=== PATIENT | male | born 1955 | race Caucasian/White ===

== ENCOUNTER 2016-12-07 15:07 | Inpatient (IN) | payer MEDICAID ==
[~2016-12-07] VITALS: Ht 182.9 cm; Wt 95.3 kg
[~2016-12-07 15:07] MED LIST: ALPR1TAB2 PO; CYCL10TA50 PO; HYDR-3240 PO; TRAZ100T15 PO; [UNRECOGNIZED DRUG - OTHER]
[2016-12-07] MEDS ORDERED: THIAMINE 100 MG in SODIUM CHLORIDE 0.9% 50 ML IVPB ONE (15:30)
[2016-12-07] MEDS ORDERED: LORazepam 2 MG/ML, 1ML ONE ×2 (15:30→16:40)
[2016-12-07] MEDS ORDERED: SODIUM CHLORIDE FLUSH 10ML SYR IVF ONE (15:30)
[2016-12-07] MEDS: LORazepam 2 MG/ML, 1ML IVPush PRN ×2 (15:34→16:42)
[2016-12-07 15:57] LABS: HEMATOCRIT 44.3 % (39.2-51.8); HEMOGLOBIN 15.3 g/dL (13.7-18.0); WHITE BLOOD COUNT 10.9 x10^3/uL (3.4-10)
[2016-12-07 16:10] LABS: ASPARTATE AMINO TRANSFERASE 20 U/L (15-37); BLOOD UREA NITROGEN 9 mg/dL (7-18)
[2016-12-07] MEDS ORDERED: SODIUM CHLORIDE 0.9% 1,000 ML IV ONE (16:52)
[2016-12-07] MEDS ORDERED: LORazepam 2 MG/ML, 1ML IVPush PRN (17:00)
[2016-12-07] MEDS ORDERED: SODIUM CHLORIDE FLUSH 10ML SYR IVF PRN (17:00)
[2016-12-07] MEDS ORDERED: DOCUSATE 100 MG CAPSULE PO PRN (19:00)
[2016-12-07] MEDS ORDERED: NICOTINE 21 MG/24 HR PATCH.TD24 TD ONE (19:00)
[2016-12-07] MEDS ORDERED: NS + 20MEQ KCL 1,000 ML IV SCH (19:00)
[2016-12-07] MEDS ORDERED: DIPHENHYDRAMINE 50 MG CAPSULE PO PRN (19:00)
[2016-12-07] MEDS ORDERED: ALUMINUM/MAG/SIMETHICONE 30 ML UDC PO PRN (19:00)
[2016-12-07 19:17] LABS: HEMATOCRIT 46.1 % (39.2-51.8); HEMOGLOBIN 15.8 g/dL (13.7-18.0); WHITE BLOOD COUNT 8.9 x10^3/uL (3.4-10)
[2016-12-07 20:59] VITALS: BP 114/78
[2016-12-07] MEDS: BACLOFEN 10 MG TABLET PO SCH (21:03)
[2016-12-07] MEDS: MAGNESIUM CHLORIDE 64 MG TABLET.DR PO SCH (21:03)
[2016-12-07] MEDS: ENOXAPARIN 40 MG/0.4 ML SQ SCH (21:04)
[2016-12-07] MEDS: LORazepam 1MG TABLET PO PRN (21:08)
[2016-12-08 00:34] VITALS: BP 155/79
[2016-12-08 06:52] LABS: ASPARTATE AMINO TRANSFERASE 19 U/L (15-37); BLOOD UREA NITROGEN 8 mg/dL (7-18)
[2016-12-08 07:22] VITALS: BP 159/94
[2016-12-08] MEDS: BACLOFEN 10 MG TABLET PO SCH ×2 (08:23→22:20)
[2016-12-08] MEDS: FOLIC ACID 1 MG TABLET PO SCH (08:23)
[2016-12-08] MEDS: MAGNESIUM CHLORIDE 64 MG TABLET.DR PO SCH ×3 (08:23→17:00)
[2016-12-08] MEDS: MULTIVITAMINS/MINERALS TABLET PO SCH (08:23)
[2016-12-08] MEDS: LORazepam 1MG TABLET PO PRN ×3 (10:29→22:20)
[2016-12-08] MEDS ORDERED: LORazepam 2 MG/ML, 1ML IVPush PRN (10:30)
[2016-12-08 13:51] VITALS: BP 157/86
[2016-12-08] MEDS ORDERED: ACETAMINOPHEN 325 MG TABLET PO PRN (16:30)
[2016-12-08 18:37] VITALS: BP 135/92
[2016-12-08] MEDS: ENOXAPARIN 40 MG/0.4 ML SQ SCH (22:21)
[2016-12-09 03:20] VITALS: BP 145/90
[2016-12-09] MEDS: LORazepam 1MG TABLET PO PRN ×2 (04:31→10:50)
[2016-12-09 05:52] LABS: BLOOD UREA NITROGEN 10 mg/dL (7-18)
[2016-12-09 07:27] VITALS: BP 152/83
[2016-12-09] MEDS: MAGNESIUM CHLORIDE 64 MG TABLET.DR PO SCH ×2 (07:33→12:17)
[2016-12-09] MEDS: FOLIC ACID 1 MG TABLET PO SCH (07:33)
[2016-12-09] MEDS: BACLOFEN 10 MG TABLET PO SCH (07:34)
[2016-12-09] MEDS: MULTIVITAMINS/MINERALS TABLET PO SCH (07:34)
[2016-12-09 13:30] VITALS: BP 141/78
[2016-12-09] MEDS ORDERED: ENOXAPARIN 40 MG/0.4 ML SQ SCH (21:00)
== END 2016-12-09 14:30 | disposition left against medical advice (07) | DRG 894 ==
LOC: ED 16:51 → EDIP 16:52 → ED 17:00 → 3NE 18:17
PROVIDERS: ADMIT Internal Medicine; ATTEND Internal Medicine
DX: F10.239 Alcohol dependence with withdrawal, unspecified (principal); J69.0 Pneumonitis due to inhalation of food and vomit; R56.9 Unspecified convulsions; F33.9 Major depressive disorder, recurrent, unspecified; F10.229 Alcohol dependence with intoxication, unspecified; E87.6 Hypokalemia; F17.210 Nicotine dependence, cigarettes, uncomplicated; F19.94 Other psychoactive substance use, unspecified with psychoactive substance-induced mood disorder; F41.1 Generalized anxiety disorder; I10 Essential (primary) hypertension; K21.9 Gastro-esophageal reflux disease without esophagitis; N40.0 Benign prostatic hyperplasia without lower urinary tract symptoms; Y90.7 Blood alcohol level of 200-239 mg/100 ml; Z91.5 Personal history of self-harm; Z90.49 Acquired absence of other specified parts of digestive tract; Z53.21 Procedure and treatment not carried out due to patient leaving prior to being seen by health care provider
CPT/HCPCS: 36415; 71010; 80048; 80053; 80307; 81003; 82140; 83690; 83735; 85025; 93005; 96365; 96375; 96376; J1650; J3411; J3480; G0479; J2060; J7030

== ENCOUNTER 2017-05-06 14:23 | Emergency (ER) | payer MEDICAID ==
[~2017-05-06] VITALS: Ht 172.7 cm; Wt 81.8 kg
[2017-05-06] MEDS ORDERED: THIAMINE 100MG TABLET ONE (14:54)
[2017-05-06] MEDS ORDERED: LORazepam 2 MG/ML, 1ML ONE (14:55)
[2017-05-06] MEDS ORDERED: LORazepam 2 MG/ML, 1ML IVPush ONE (15:00)
[2017-05-06] MEDS ORDERED: THIAMINE 100MG TABLET PO ONE (16:00)
[2017-05-06] MEDS ORDERED: SODIUM CHLORIDE 0.9% 1,000ML IVBOLUS ONE (16:00)
[2017-05-06] MEDS ORDERED: SODIUM CHLORIDE FLUSH 10ML SYR IVF ONE (16:00)
[2017-05-06 16:16] LABS: BASOPHILS # (AUTO) 0.05 x10^3/uL (0-0.1); BASOPHILS % (AUTO) 1 % (0-1); EOSINOPHILS # (AUTO) 0.08 x10^3/uL (0-0.4); EOSINOPHILS % (AUTO) 1 % (1-7); LYMPHOCYTES # (AUTO) 2.09 x10^3/uL (1-3.4); LYMPHOCYTES % (AUTO) 22 % (22-44); MD NO; MEAN CORPUSCULAR HEMOGLOBIN 31.1 pg (27.5-34.5); MEAN CORPUSCULAR HGB CONC 34.6 g/dL (33.2-36.2); MEAN CORPUSCULAR VOLUME 89.9 fL (81-97); MEAN PLATELET VOLUME 6.8 fL (7.4-10.4); MONOCYTES # (AUTO) 1.02 x10^3/uL (0.2-0.8); MONOCYTES % (AUTO) 11 % (2-9); NEUTROPHILS # (AUTO) 6.25 x10^3/uL (1.8-6.8); NEUTROPHILS % (AUTO) 66 % (42-75); PLATELET COUNT 213 x10^3/uL (130-400); RED BLOOD COUNT 4.85 x10^6/uL (4.38-5.82); RED CELL DISTRIBUTION WIDTH 13.1 % (9.4-14.8)
[2017-05-06 16:23] LABS: ALBUMIN 3.1 g/dL (3.4-5.0); ANION GAP 10 mmol/L (5-15); CALCIUM 7.7 mg/dL (8.5-10.1); CHLORIDE 96 mmol/L (98-107); CREATININE 0.72 mg/dL (0.7-1.3)
[2017-05-06 17:43] VITALS: BP 125/70
== END 2017-05-06 18:04 | disposition home or self-care (01) ==
LOC: ED 17:57
DX: M51.36 Other intervertebral disc degeneration, lumbar region (principal); F10.20 Alcohol dependence, uncomplicated; E87.1 Hypo-osmolality and hyponatremia; K21.9 Gastro-esophageal reflux disease without esophagitis; I10 Essential (primary) hypertension
CPT/HCPCS: 36415; 70450; 72110; 80047; 80048; 82040; 85025; 96361; 96374; 99285; J2060; J7030

== ENCOUNTER 2018-12-20 13:46 | Emergency (ER) | payer MEDICAID, OTHER ==
[~2018-12-20] VITALS: Ht 185.4 cm; Wt 86.0 kg
[~2018-12-20 13:46] MED LIST changes: +TRAZ-137 PO; -TRAZ100T15 PO
--- NOTE | 2018-12-20 14:03 | NUR ---
Patient brought in by EMS for altered mental status. Patient arrives moaning "don't be mad at me" and "I don't feel good" but does not answer questions. With physician in room patient reports abdominal pain and alcohol use. Patient does not tolerate oral temperatue, axillary temperature obtained, MD aware. Blood glucose per EMS blood glucose 156mg/dL. IV started by EMS prior to arrival. Continuous blood pressure, SPO2 and cardiac monitoring in place, call bach within reach.
--- NOTE | 2018-12-20 14:12 | NUR ---
Patient has abrasions and bruising to extremities, erythema around right eye.
--- NOTE | 2018-12-20 14:47 | NUR ---
Patient repeatedly attempting to get out of bed, removing monitoring equipment. Sitter requested for patient's safety.
[2018-12-20 14:53] LABS: ALANINE AMINOTRANSFERASE 48 U/L (12-78); ALBUMIN 3.7 g/dL (3.4-5.0); ANION GAP 13 mmol/L (5-15); CALCIUM 8.3 mg/dL (8.5-10.1); CHLORIDE 97 mmol/L (98-107); CREATININE 0.76 mg/dL (0.7-1.3)
[2018-12-20 14:55] LABS: BASOPHILS # (AUTO) 0.03 x10^3/uL (0-0.1); BASOPHILS % (AUTO) 1 % (0-1); EOSINOPHILS # (AUTO) 0.04 x10^3/uL (0-0.4); EOSINOPHILS % (AUTO) 1 % (1-7); LYMPHOCYTES # (AUTO) 2.51 x10^3/uL (1-3.4); LYMPHOCYTES % (AUTO) 36 % (22-44); MD NO; MEAN CORPUSCULAR HEMOGLOBIN 31.2 pg (27.5-34.5); MEAN CORPUSCULAR HGB CONC 34.3 g/dL (33.2-36.2); MEAN CORPUSCULAR VOLUME 90.8 fL (81-97); MEAN PLATELET VOLUME 6.4 fL (7.4-10.4); MONOCYTES # (AUTO) 0.71 x10^3/uL (0.2-0.8); MONOCYTES % (AUTO) 10 % (2-9); NEUTROPHILS # (AUTO) 3.63 x10^3/uL (1.8-6.8); NEUTROPHILS % (AUTO) 52 % (42-75); PLATELET COUNT 235 x10^3/uL (130-400); RED BLOOD COUNT 5.31 x10^6/uL (4.38-5.82); RED CELL DISTRIBUTION WIDTH 13.6 % (9.4-14.8)
[2018-12-20 14:58] LABS: ALKALINE PHOSPHATASE 84 U/L (45-117); BILIRUBIN,TOTAL 0.8 mg/dL (0.2-1.0); TOTAL PROTEIN 7.3 g/dL (6.4-8.2)
--- NOTE | 2018-12-20 15:10 | NUR ---
Sitter at bedside for patient safety
--- NOTE | 2018-12-20 16:40 | NUR ---
Dinner tray provided, sitter remains at bedside for patient's safety.
[2018-12-20 16:44] VITALS: BP 119/75
--- NOTE | 2018-12-20 16:45 | NUR ---
Patient ate 50% of meal tray provided.
--- NOTE | 2018-12-20 17:27 | NUR ---
Patient now answering questions appropriately, reporting left knee pain, Dr. Kaiser, notified.
--- NOTE | 2018-12-20 17:30 | NUR ---
Patient ambulates with steady gait, waiting for xray for left knee.
--- NOTE | 2018-12-20 17:54 | NUR ---
Patient not in room, IV with catheter intact found on the floor with gown. Patient appears to have eloped. Dr. Kaiser notified.
== END 2018-12-20 18:11 | disposition left against medical advice (07) ==
LOC: ED 18:05
DX: F10.220 Alcohol dependence with intoxication, uncomplicated (principal); R10.9 Unspecified abdominal pain; I10 Essential (primary) hypertension; F41.1 Generalized anxiety disorder; K21.9 Gastro-esophageal reflux disease without esophagitis; F32.9 Major depressive disorder, single episode, unspecified; F17.200 Nicotine dependence, unspecified, uncomplicated
CPT/HCPCS: 36415; 80053; 80307; 85025; 93005; 99284

== ENCOUNTER 2020-02-17 19:11 | Inpatient (IN) | payer MEDICAID ==
[~2020-02-17] VITALS: Ht 182.9 cm; Wt 76.2 kg
[~2020-02-17 19:11] MED LIST changes: -TRAZ-137 PO; +TRAZ-175 PO
[2020-02-17] MEDS ORDERED: LORazepam 2 MG/ML, 1ML IVPush ONE ×2 (20:00→21:30)
[2020-02-17] MEDS ORDERED: LORazepam 2 MG/ML, 1ML ONE ×2 (20:24→21:13)
[2020-02-17 20:53] LABS: AMPHETAMINE SCREEN, URINE Negative (Negative); BARBITURATE SCREEN, URINE Negative (Negative); BENZODIAZEPINE SCREEN, URINE Negative (Negative); CANNABINOID SCREEN, URINE Positive (Negative); COCAINE SCREEN, URINE Negative (Negative); METHADONE SCREEN, URINE Negative (Negative); OPIATE SCREEN, URINE Positive (Negative)
[2020-02-17 20:57] LABS: BASOPHILS % (AUTO) 0 % (0-1); EOSINOPHILS % (AUTO) 0 % (1-7); LYMPHOCYTES % (AUTO) 9 % (22-44); MEAN CORPUSCULAR HEMOGLOBIN 30.6 pg (27.5-34.5); MEAN CORPUSCULAR HGB CONC 35.6 g/dL (33.2-36.2); MEAN PLATELET VOLUME 6.5 fL (7.4-10.4); MONOCYTES % (AUTO) 6 % (2-9); NEUTROPHILS % (AUTO) 84 % (42-75); PLATELET COUNT 169 x10^3/uL (130-400); RED BLOOD COUNT 4.34 x10^6/uL (4.38-5.82); RED CELL DISTRIBUTION WIDTH 13.5 % (9.4-14.8)
[2020-02-17 21:02] LABS: MD NO
[2020-02-17 21:05] LABS: ALANINE AMINOTRANSFERASE 28 U/L (12-78); ALBUMIN 3.5 g/dL (3.4-5.0); ANION GAP 9 mmol/L (5-15); CALCIUM 7.8 mg/dL (8.5-10.1); CHLORIDE 85 mmol/L (98-107); CREATININE 0.64 mg/dL (0.7-1.3)
[2020-02-17 21:09] LABS: ALKALINE PHOSPHATASE 91 U/L (45-117); BILIRUBIN,TOTAL 1.8 mg/dL (0.2-1.0); TOTAL PROTEIN 6.3 g/dL (6.4-8.2); TROPONIN I 0.015 ng/mL (0.000-0.045)
[2020-02-17 21:13] LABS: SALICYLATE LEVEL < 1.7 mg/dL (2.8-20.0)
--- NOTE | 2020-02-17 21:14 | NUR ---
CODE YELLOW. PT HELPED BY STAFF MEMBERS BACK TO BED.
--- NOTE | 2020-02-17 21:16 | NUR ---
REPORT FROM RICHARD MORALES
--- NOTE | 2020-02-17 21:20 | NUR ---
dr andrade in to assess pt after fall.
[2020-02-17] MEDS ORDERED: SODIUM CHLORIDE 0.9% 1,000ML IVBOLUS ONE (21:30)
--- NOTE | 2020-02-17 21:49 | NUR ---
pt placed on bed alarm. red socks applied and yellow gown applied to pt. Addendum: 02/17/20 at 2236 by BDICECCO no bed alaram available to me in the ER. no cord to attached to darryl alarm to attached to outlet. no sitter available to me in the ER to sit on this pt. I will do frequent checks on pt while i provide care to other patients. no other option.
--- NOTE | 2020-02-17 21:50 | NUR ---
pt provided a urinal for uriantion. pt then began to drink urine for urinal. urinal removed from pt anisa.
[2020-02-17] MEDS ORDERED: ACETAMINOPHEN 325 MG TABLET PO PRN (22:30)
[2020-02-17] MEDS ORDERED: SODIUM CHLORIDE 0.9% 1,000 ML IV SCH (22:30)
[2020-02-17] MEDS ORDERED: THIAMINE 200 MG in SODIUM CHLORIDE 0.9% 50 ML IV ONE (22:30)
[2020-02-17] MEDS ORDERED: PROMETHAZINE 25 MG/ML, 1ML IM PRN (22:30)
[2020-02-17] MEDS ORDERED: LABETALOL 5MG/ML, 20ML IVPush PRN (22:30)
[2020-02-17] MEDS ORDERED: LORazepam 2 MG/ML, 1ML IV PRN ×3 (22:30)
[2020-02-17] MEDS ORDERED: FOLIC ACID 1 MG TABLET PO ONE (22:30)
--- NOTE | 2020-02-17 22:32 | NUR ---
report attempted x 2
--- NOTE | 2020-02-17 23:13 | NUR ---
report to thom walter
--- NOTE | 2020-02-17 23:14 | NUR ---
PT SLEEPING ON GURNEY. RESPIRATIONS EVEN AND UNLABORED.
[2020-02-17 23:44] VITALS: BP 142/62
[2020-02-18] MEDS ORDERED: DIAZEPAM 5 MG TABLET ONE ×2 (00:06→06:35)
[2020-02-18] MEDS: ENOXAPARIN 40 MG/0.4 ML SQ SCH ×2 (00:12→20:25)
[2020-02-18] MEDS: LACTULOSE 10 GM/15 ML UDC PO SCH ×3 (00:13→20:24)
[2020-02-18] MEDS: DIAZEPAM 10 MG TABLET PO SCH ×3 (00:13→06:37)
[2020-02-18 01:26] LABS: ANION GAP 6 mmol/L (5-15); CALCIUM 7.9 mg/dL (8.5-10.1); CHLORIDE 96 mmol/L (98-107); CREATININE 0.59 mg/dL (0.7-1.3)
[2020-02-18] MEDS: LORazepam 2 MG/ML, 1ML IV PRN ×5 (02:34→23:47)
[2020-02-18 05:47] LABS: BASOPHILS % (AUTO) 0 % (0-1); EOSINOPHILS % (AUTO) 0 % (1-7); LYMPHOCYTES % (AUTO) 21 % (22-44); MEAN CORPUSCULAR HEMOGLOBIN 30.1 pg (27.5-34.5); MEAN CORPUSCULAR HGB CONC 34.5 g/dL (33.2-36.2); MEAN PLATELET VOLUME 6.6 fL (7.4-10.4); MONOCYTES % (AUTO) 12 % (2-9); NEUTROPHILS % (AUTO) 67 % (42-75); PLATELET COUNT 153 x10^3/uL (130-400); RED BLOOD COUNT 4.42 x10^6/uL (4.38-5.82); RED CELL DISTRIBUTION WIDTH 13.4 % (9.4-14.8)
[2020-02-18 05:55] LABS: ALBUMIN 3.1 g/dL (3.4-5.0); ANION GAP 4 mmol/L (5-15); CALCIUM 7.9 mg/dL (8.5-10.1); CHLORIDE 100 mmol/L (98-107)
[2020-02-18 06:00] LABS: ALANINE AMINOTRANSFERASE 27 U/L (12-78); ALKALINE PHOSPHATASE 80 U/L (45-117); BILIRUBIN,TOTAL 2.4 mg/dL (0.2-1.0); CREATININE 0.66 mg/dL (0.7-1.3); TOTAL PROTEIN 5.8 g/dL (6.4-8.2)
[2020-02-18 06:04] LABS: MD NO
[2020-02-18 08:00] VITALS: BP 127/71
[2020-02-18 08:36] LABS: MICROSCOPIC AUTO
[2020-02-18 08:37] LABS: CHLORIDE,URINE RANDOM 74 mmol/L; POTASSIUM,URINE RANDOM 48 mmol/L; SODIUM,URINE RANDOM 79 mmol/L
[2020-02-18] MEDS ORDERED: SODIUM CHLORIDE 0.9% 1,000 ML IV SCH (09:00)
[2020-02-18] MEDS ORDERED: POTASSIUM CHLORIDE 20 MEQ TAB.ER.PRT PO ONE (09:00)
[2020-02-18 09:14] LABS: ANION GAP 6 mmol/L (5-15); CALCIUM 8.1 mg/dL (8.5-10.1); CHLORIDE 102 mmol/L (98-107); CREATININE 0.77 mg/dL (0.7-1.3)
[2020-02-18] MEDS: MULTIVITAMINS/MINERALS TABLET PO SCH (09:27)
[2020-02-18] MEDS: THIAMINE 100 MG in SODIUM CHLORIDE 0.9% 50 ML IV SCH (11:21)
[2020-02-18 13:00] VITALS: BP 162/92
[2020-02-18 17:34] LABS: ANION GAP 7 mmol/L (5-15); CALCIUM 8.2 mg/dL (8.5-10.1); CHLORIDE 98 mmol/L (98-107); CREATININE 0.72 mg/dL (0.7-1.3)
[2020-02-18 19:07] VITALS: BP 158/70
[2020-02-18] MEDS ORDERED: DIAZEPAM 5 MG TABLET PO SCH (22:30)
[2020-02-19] MEDS: LACTULOSE 10 GM/15 ML UDC PO SCH ×2 (00:36→09:26)
[2020-02-19] MEDS: LORazepam 2 MG/ML, 1ML IV PRN ×4 (00:48→14:08)
[2020-02-19 00:58] VITALS: BP 150/97
[2020-02-19] MEDS: DIAZEPAM 5 MG TABLET PO SCH ×3 (01:58→13:26)
[2020-02-19 08:00] VITALS: BP 161/83
[2020-02-19] MEDS: MULTIVITAMINS/MINERALS TABLET PO SCH (09:25)
[2020-02-19] MEDS: THIAMINE 100 MG in SODIUM CHLORIDE 0.9% 50 ML IV SCH (09:26)
[2020-02-19 09:29] LABS: ANION GAP 10 mmol/L (5-15); CALCIUM 8.5 mg/dL (8.5-10.1); CHLORIDE 97 mmol/L (98-107)
[2020-02-19] MEDS: CARVEDILOL 3.125 MG TABLET PO SCH (09:29)
[2020-02-19] MEDS: SODIUM CHLORIDE 0.9% 1,000 ML IV SCH (13:26)
[2020-02-19] MEDS ORDERED: HALOPERIDOL 5 MG/ML ONE (14:42)
[2020-02-19] MEDS: HALOPERIDOL 5 MG/ML IM PRN (14:44)
[2020-02-19] MEDS: RISPERIDONE 0.5 MG TABLET PO SCH (19:00)
[2020-02-20] MEDS: DIAZEPAM 5 MG TABLET PO SCH ×5 (00:34→18:28)
[2020-02-20] MEDS: RISPERIDONE 0.5 MG TABLET PO SCH ×2 (00:36→20:23)
[2020-02-20] MEDS: CARVEDILOL 3.125 MG TABLET PO SCH (00:36)
[2020-02-20] MEDS: ENOXAPARIN 40 MG/0.4 ML SQ SCH ×2 (00:37→22:30)
[2020-02-20 00:58] VITALS: BP 153/84
[2020-02-20] MEDS: SODIUM CHLORIDE 0.9% 1,000 ML IV SCH ×3 (01:31→23:31)
[2020-02-20] MEDS: HALOPERIDOL 5 MG/ML IM PRN ×3 (01:39→20:32)
[2020-02-20] MEDS: ACETAMINOPHEN 325 MG TABLET PO PRN ×2 (01:58→12:42)
[2020-02-20] MEDS: NICOTINE 21 MG/24 HR PATCH.TD24 TD SCH ×3 (02:40→23:30)
[2020-02-20] MEDS: LORazepam 1MG TABLET PO PRN ×8 (04:17→17:55)
[2020-02-20 05:56] LABS: CHLORIDE 95 mmol/L (98-107)
[2020-02-20 06:00] LABS: ANION GAP 5 mmol/L (5-15); CALCIUM 8.3 mg/dL (8.5-10.1); CREATININE 0.83 mg/dL (0.7-1.3)
[2020-02-20] MEDS ORDERED: POTASSIUM CHLORIDE 20 MEQ TAB.ER.PRT PO ONE (06:30)
[2020-02-20 08:00] VITALS: BP 155/92
[2020-02-20] MEDS: MULTIVITAMINS/MINERALS TABLET PO SCH (08:50)
[2020-02-20] MEDS: LACTULOSE 10 GM/15 ML UDC PO SCH ×2 (08:50→20:23)
[2020-02-20] MEDS: THIAMINE 100 MG in SODIUM CHLORIDE 0.9% 50 ML IV SCH (08:51)
[2020-02-20] MEDS: LORazepam 2 MG/ML, 1ML IV PRN ×4 (08:57→23:39)
[2020-02-20] MEDS: HYDROcodone/APAP 5/325 TABLET PO PRN ×2 (11:35→19:43)
[2020-02-20 14:00] VITALS: BP 152/99
[2020-02-20] MEDS: CARVEDILOL 6.25 MG TABLET PO SCH (16:59)
[2020-02-20 18:42] VITALS: BP 156/74
[2020-02-21] MEDS: DIAZEPAM 5 MG TABLET PO SCH (00:03)
[2020-02-21] MEDS ORDERED: HALOPERIDOL 5 MG/ML IV ONE (00:30)
[2020-02-21] MEDS: LORazepam 1MG TABLET PO PRN (01:00)
[2020-02-21 01:45] VITALS: BP 162/76
[2020-02-21] MEDS ORDERED: PHENOBARBITAL SODIUM IVPB ONE (02:00)
[2020-02-21] MEDS ORDERED: SODIUM CHLORIDE 0.9% IVPB ONE (02:00)
[2020-02-21] MEDS ORDERED: PHARMACY INSTRUCTION MC PRN ×4 (02:00)
[2020-02-21 03:25] LABS: ANION GAP 6 mmol/L (5-15); CALCIUM 8.6 mg/dL (8.5-10.1); CHLORIDE 102 mmol/L (98-107)
[2020-02-21 03:28] LABS: CREATININE 0.62 mg/dL (0.7-1.3)
[2020-02-21 04:02] LABS: BASOPHILS % (AUTO) 0 % (0-1); EOSINOPHILS % (AUTO) 1 % (1-7); LYMPHOCYTES % (AUTO) 21 % (22-44); MEAN CORPUSCULAR HEMOGLOBIN 30.4 pg (27.5-34.5); MEAN PLATELET VOLUME 7.4 fL (7.4-10.4); MONOCYTES % (AUTO) 10 % (2-9); NEUTROPHILS % (AUTO) 67 % (42-75); PLATELET COUNT 196 x10^3/uL (130-400); RED BLOOD COUNT 4.73 x10^6/uL (4.38-5.82); RED CELL DISTRIBUTION WIDTH 13.8 % (9.4-14.8)
[2020-02-21 04:03] LABS: MD NO
[2020-02-21] MEDS: CARVEDILOL 6.25 MG TABLET PO SCH ×2 (05:36→18:00)
[2020-02-21] MEDS ORDERED: MAGNESIUM SULFATE PMX 2GM/50ML 50 ML IV ONE (06:30)
[2020-02-21] MEDS ORDERED: POTASSIUM CHLORIDE 40 MEQ in SODIUM CHLORIDE 0.9% 500 ML IV ONE (07:00)
[2020-02-21] MEDS ORDERED: SODIUM CHLORIDE 0.9% IV ONE (07:30)
[2020-02-21] MEDS ORDERED: PHENOBARBITAL SODIUM IV ONE (07:30)
[2020-02-21] MEDS: LACTULOSE 10 GM/15 ML UDC PO SCH ×2 (08:25→20:47)
[2020-02-21] MEDS: MULTIVITAMINS/MINERALS TABLET PO SCH ×2 (08:25→09:00)
[2020-02-21] MEDS ORDERED: SODIUM PHOSPHATE 40 MEQ in SODIUM CHLORIDE 0.9% 500 ML IV ONE (09:00)
[2020-02-21] MEDS: THIAMINE 100 MG in SODIUM CHLORIDE 0.9% 50 ML IV SCH (13:59)
[2020-02-21] MEDS: NICOTINE 21 MG/24 HR PATCH.TD24 TD SCH (18:20)
[2020-02-21] MEDS: SODIUM CHLORIDE 0.9% 1,000 ML IV SCH (18:21)
[2020-02-21] MEDS: PHENOBARBITAL SODIUM 65 MG/ML, 1ML IM SCH (20:47)
[2020-02-21] MEDS: ENOXAPARIN 40 MG/0.4 ML SQ SCH (22:42)
[2020-02-22 05:01] LABS: INTERNATIONAL NORMALIZED RATIO 1.02 (0.93-1.1); PROTHROMBIN TIME 10.8 Seconds (9.6-11.5)
[2020-02-22 05:07] LABS: ALANINE AMINOTRANSFERASE 43 U/L (12-78); ALBUMIN 3.3 g/dL (3.4-5.0); ANION GAP 7 mmol/L (5-15); CALCIUM 8.1 mg/dL (8.5-10.1); CHLORIDE 106 mmol/L (98-107)
[2020-02-22 05:09] LABS: ALKALINE PHOSPHATASE 74 U/L (45-117); BILIRUBIN,TOTAL 0.7 mg/dL (0.2-1.0); TOTAL PROTEIN 6.3 g/dL (6.4-8.2)
[2020-02-22] MEDS: CARVEDILOL 6.25 MG TABLET PO SCH ×2 (05:38→17:41)
[2020-02-22] MEDS ORDERED: POTASSIUM CHLORIDE 20 MEQ TAB.ER.PRT PO ONE (06:30)
[2020-02-22] MEDS: LACTULOSE 10 GM/15 ML UDC PO SCH ×2 (07:53→19:36)
[2020-02-22] MEDS: MULTIVITAMINS/MINERALS TABLET PO SCH (07:53)
[2020-02-22] MEDS: THIAMINE 100 MG in SODIUM CHLORIDE 0.9% 50 ML IV SCH (07:56)
[2020-02-22] MEDS: PHENOBARBITAL SODIUM 65 MG/ML, 1ML IM SCH (07:56)
[2020-02-22 09:00] VITALS: BP 148/90
[2020-02-22 10:20] VITALS: BP 144/86
[2020-02-22 10:39] VITALS: BP 128/74
[2020-02-22 13:10] VITALS: BP 123/7
[2020-02-22] MEDS: PHENOBARBITAL 20 MG/5 ML ORAL SOL PO SCH (16:17)
[2020-02-22] MEDS: HYDROcodone/APAP 5/325 TABLET PO PRN (17:41)
[2020-02-22] MEDS: NICOTINE 21 MG/24 HR PATCH.TD24 TD SCH (17:41)
[2020-02-22 19:31] VITALS: BP 136/80
[2020-02-22] MEDS: ACETAMINOPHEN 325 MG TABLET PO PRN (19:40)
[2020-02-22] MEDS: ENOXAPARIN 40 MG/0.4 ML SQ SCH (21:57)
[2020-02-23 01:08] VITALS: BP 128/78
[2020-02-23] MEDS: PHENOBARBITAL 20 MG/5 ML ORAL SOL PO SCH ×2 (04:41→14:59)
[2020-02-23] MEDS: CARVEDILOL 6.25 MG TABLET PO SCH ×2 (04:41→18:50)
[2020-02-23 07:37] VITALS: BP 137/84
[2020-02-23] MEDS: HYDROcodone/APAP 5/325 TABLET PO PRN ×2 (09:09→18:55)
[2020-02-23] MEDS: THIAMINE 100 MG in SODIUM CHLORIDE 0.9% 50 ML IV SCH (09:09)
[2020-02-23] MEDS: LACTULOSE 10 GM/15 ML UDC PO SCH ×2 (09:09→21:59)
[2020-02-23] MEDS: CITALOPRAM 20 MG TABLET PO SCH (09:09)
[2020-02-23] MEDS: MULTIVITAMINS/MINERALS TABLET PO SCH (09:10)
[2020-02-23 12:42] VITALS: BP 132/73
[2020-02-23] MEDS: ACETAMINOPHEN 325 MG TABLET PO PRN (12:51)
[2020-02-23] MEDS: NICOTINE 21 MG/24 HR PATCH.TD24 TD SCH (18:50)
[2020-02-23 19:35] VITALS: BP 146/82
[2020-02-23] MEDS: ENOXAPARIN 40 MG/0.4 ML SQ SCH (21:59)
[2020-02-23] MEDS ORDERED: TEMAZEPAM 15 MG CAPSULE PO ONE (22:00)
[2020-02-24] MEDS ORDERED: TEMAZEPAM 15 MG CAPSULE PO ONE (00:30)
[2020-02-24 01:37] VITALS: BP 158/88
[2020-02-24] MEDS: PHENOBARBITAL 20 MG/5 ML ORAL SOL PO SCH (03:08)
[2020-02-24 09:52] VITALS: BP 141/85
[2020-02-24] MEDS: MULTIVITAMINS/MINERALS TABLET PO SCH (09:55)
[2020-02-24] MEDS: CITALOPRAM 20 MG TABLET PO SCH (09:56)
[2020-02-24] MEDS: CARVEDILOL 6.25 MG TABLET PO SCH (09:56)
[2020-02-24] MEDS: HYDROcodone/APAP 5/325 TABLET PO PRN (09:56)
[2020-02-24] MEDS: LACTULOSE 10 GM/15 ML UDC PO SCH (09:57)
[2020-02-24] MEDS: THIAMINE 100 MG in SODIUM CHLORIDE 0.9% 50 ML IV SCH (11:51)
[2020-02-24] MEDS ORDERED: CARV6.2512 PO (13:20)
[2020-02-24] MEDS ORDERED: THIA100T67 PO (13:20)
[2020-02-24] MEDS ORDERED: MULT-484 PO (13:20)
[2020-02-24] MEDS ORDERED: CITA20TA9 PO (13:20)
[2020-02-25] MEDS ORDERED: PHENOBARBITAL 20 MG/5 ML ORAL SOL PO SCH (15:30)
[2020-02-26] MEDS ORDERED: PHENOBARBITAL 20 MG/5 ML ORAL SOL PO SCH (15:30)
== END 2020-02-24 15:00 | disposition home or self-care (01) | DRG 52 ==
LOC: ED 21:29 → EDIP 21:43 → 5SO 23:36 → CCU 02-21 02:11 → 5SO 02-22 09:59 → DCLOUNGE 02-24 14:56
PROVIDERS: ADMIT Family Medicine; ATTEND Internal Medicine Infectious Disease
DX: G93.41 Metabolic encephalopathy (principal); F15.90 Other stimulant use, unspecified, uncomplicated; D64.9 Anemia, unspecified; E87.1 Hypo-osmolality and hyponatremia; F10.239 Alcohol dependence with withdrawal, unspecified; F17.200 Nicotine dependence, unspecified, uncomplicated; F32.9 Major depressive disorder, single episode, unspecified; I10 Essential (primary) hypertension; K21.9 Gastro-esophageal reflux disease without esophagitis; N40.0 Benign prostatic hyperplasia without lower urinary tract symptoms; R29.6 Repeated falls; F19.10 Other psychoactive substance abuse, uncomplicated; S09.90XA Unspecified injury of head, initial encounter; S50.812A Abrasion of left forearm, initial encounter; W06.XXXA Fall from bed, initial encounter; Z90.49 Acquired absence of other specified parts of digestive tract; Y93.89 Activity, other specified; Y92.092 Bedroom in other non-institutional residence as the place of occurrence of the external cause; Y99.8 Other external cause status
CPT/HCPCS: 36415; 70450; 71045; 72125; 80048; 80053; 80299; 80307; 80320; 80329; 81001; 82140; 82330; 82436; 82607; 83690; 83735; 83930; 84100; 84133; 84300; 84443; 84484; 85025; 85610; 87081; 93005; G0378; J1650; J2550; J2560; J3411; J3480; G0480; J1630; J2060; J3475; J7030; J7040